=== PATIENT | female | born 1950 | race Caucasian/White ===

== ENCOUNTER 2018-12-27 14:37 | Observation (INO) ==
--- NOTE | 2018-12-27 15:00 | Emergency Department Note ---
ED Disposition Clinical Impression: Unstable angina, Hypertension Disposition: Still a Patient Condition on Discharge: Fair - Critical Care Critical Care Time: No Attestation: On , the high probability of a clinically significant, sudden or life threatening deterioration of the following system(s) required my full and direct attention, intervention and personal management. The time I documented below is in addition to time spent performing reported procedures but includes the following listed in this critical care notation. Medical Decision Making - Nolan Inquiry Pt receiving controlled substance: No Nolan was queried for this patient: No Vital Signs: 12/27/18 14:37 12/27/18 14:38 12/27/18 15:07 Temperature 97.6 F Temperature Source Oral Pulse Rate [Right Brachial] 70 66 62 Respiratory Rate 18 Blood Pressure [Right Arm] 100/56 L 100/59 L 106/79 L Blood Pressure Mean [Right Arm] 70 72 88 Blood Pressure Source [Right Arm] Automatic Cuff Blood Pressure Position [Right Arm] Sitting 02 Sat by Pulse Oximetry 96 96 93 L Oxygen Delivery Method Room Air 12/27/18 15:56 Temperature Temperature Source Pulse Rate [Right Brachial] 61 Respiratory Rate Blood Pressure [Right Arm] 125/62 Blood Pressure Mean [Right Arm] 83 Blood Pressure Source [Right Arm] Blood Pressure Position [Right Arm] 02 Sat by Pulse Oximetry 94 L Oxygen Delivery Method - Lab Data Lab Results 12/27/18 14:45: WBC 6.9, RBC 4.80, Hgb 14.1, Hct 43.4, MCV 90.4, MCH 29.3, MCHC 32.4, RDW 13.1, Plt Count 268, MPV 7.7, Neut % (Auto) 64.8, Lymph % (Auto) 24.3, [place] % (Auto) 8.0, Eos % (Auto) 2.3, Baso % (Auto) 0.6, Neut # (Auto) 4.5, Lymph # (Auto) 1.7, [place] # (Auto) 0.6, Eos # (Auto) 0.2, Baso # (Auto) 0.0 12/27/18 14:45: Sodium 140, Potassium 3.9, Chloride 103, Carbon Dioxide 25, Anion Gap 15.9 H, BUN 16, Creatinine 0.74, Estimated Creat Clear 51, Estimated GFR 78, Est GFR ( Amer) 94, Glucose 123 H, Calcium 8.9, Troponin I < 0.02 Result diagrams: 12/27/18 14:45 12/27/18 14:45 - ECG Data Tracing #1 Normal sinus rhythm 67/min baseline artifact LVH changes no acute ST segment or T wave changes. ECG initial impression date: 12/27/18 ECG initial impression time: 14:40 Medical Decision Narrative: Mrs. Coombs reported lessning of her cp to three in the ED. her first set of troponin was negative. I reviewed her prior work-up at [facility] and the last was an echo in 2013. [id number] called the pipe supervisor Dr. Blood who recommended the patient to be admitted for rule out LA protocol and to be contacted if the troponin is positive for an emergency cardiac catheterization. [address] Valerio was covering Dr. Disla who agreed to admit the patie nt and follow the above plan. Chest Pain HPI - General Chief Complaint: Chest Pain Stated Complaint: chest pain Time Seen by Provider: 12/27/18 14:40 Mode of Arrival: EMS Source of Information: Patient, EMS Limitations: No Limitations Description of Symptoms (Recalled from ER Triage Doc. by RN): pt presents with having hard chest pain prior to arrival; stated she was given 2 nitroglycerin and it resolved. em[facility] arrived [place] [facility] and initiated an iv, obtained blood for labs and assessed pt. no acute cardiac event noted per ems. - History of Present Illness HPI narrative: 68 years old white female non-smoker with history of chest pain but she denies ever having cardiac catheterization. 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 Tooday at 11 AM she developed retrosternal chest pressure that is rated 5/10 with no radiation associated with dizziness, weakness and shortness of breath. She denies palpitations. She denies nausea vomiting hematemesis coffee-ground emesis hemoptysis melanotic stool or bleeding per rectum. The patient received baby aspirin x4 and nitroglycerin with relief of her chest pain but returned after 5 minutes. Repeated blood pressure was dropped to 81/51 with no tachycardia so the patient was brought to the ED for evaluation. MD complaint: chest pain Onset (ago): hour(s) Time: 11:00 Duration: intermittent Activity at onset: during rest Pain location: substernal Severity: moderate Severity scale (1-10): 5 Quality: heaviness Pain radiation: none Relieving factors: nitroglycerin Exacerbating factors: nothing Associated symptoms: dyspnea Risk Factors for CAD: Hypertension Treatments prior to or on arrival for Cardiac Chest Pain: aspirin, nitroglycerin, oxygen - Related Data Prior Cardiac Testing/Procedures: Echocardiogram On Oral Contraceptives: No Home Medications Medication Instructions Recorded Confirmed Saccharomyces boulardii 250 mg 250 mg PO BID 04/09/18 05/08/18 capsule atenolol 25 mg tablet 25 mg PO DAILY 04/09/18 05/08/18 bisacodyl 10 mg rectal suppository 10 mg [place] DAILY PRN 04/09/18 05/08/18 ferrous sulfate 325 mg (65 mg 325 mg PO DAILY tab 04/09/18 05/08/18 iron) tablet gabapentin 300 mg capsule 300 mg PO DAILY 04/09/18 05/08/18 levothyroxine 50 mcg tablet 50 mcg PO DAILY 04/09/18 05/08/18 melatonin 5 mg capsule 5 mg PO DAILY cap 04/09/18 05/08/18 nitroglycerin 0.4 mg sublingual 0.4 mg SUBLINGUAL Q5-15M PRN 04/09/18 05/08/[address] 40 mg granules 40 mg PO DAILY 04/09/18 05/08/18 delayed-release for susp in packet polyethylene glycol 3350 17 gram 17 g PO DAILY 04/09/18 05/08/18 oral powder packet Allergies Allergy/AdvReac Type Severity Reaction Status Date / Time ASA (ASPIRIN) AdvReac Unknown NA-NAUSEA Uncoded 07/02/17 15:[address] [facility] History - Hepatitis A Screen Drug use history?: No High risk sexual behaviors?: No History of sexually transmitted infection?: No Currently employed?: No Childcare worker?: No Do you have indoor plumbing?: Yes Do you have electricity?: Yes Attestation statement:: This patient has been screened for Hepatitis A risk factors. I have reviewed the patient's past medical history: Yes Medical History: Reports:: Gastroesophageal Reflux Disease(GERD), Hypertension Denies:: Diabetes Mellitus Type 1, Diabetes Mellitus Type 2, Internal Pacemaker, Lung Disease, Seizures Other Medical History: Reports: Thyroid Disease Other Surgeries: Yes: No Previous Surgery. No: Pacemaker - Social History Smoking Status: Never smoker Alcohol Intake: never Substance Use Type: denies use Family Hx:: No significant family history ROS Obtained: Yes All systems reviewed & no additional complaints Physical Exam - General General appearance: alert, in no apparent distress - Head Head exam: atraumatic, normocephalic, normal inspection - Eye Eye exam: Present: normal appearance, PERRL, EOMI. Absent: scleral icterus, nystagmus - ENT ENT exam: Present: normal exam, normal oropharynx, mucous membranes moist, TM's normal bilaterally, normal external ear exam - Neck Neck exam: Present: normal inspection, full ROM, trachea midline. Absent: meningismus, lymphadenopathy - Chest Chest inspection: Present: normal inspection, symmetric chest wall rise. Absent: tenderness - Respiratory Respiratory exam: Present: normal lung sounds bilaterally. Absent: respiratory distress, wheezes, stridor - Cardiovascular Cardiovascular exam: Present: regular rate, normal rhythm, normal heart sounds. Absent: JVD - Abdominal Exam Abdominal exam: Present: soft, normal bowel sounds. Absent: distention, tenderness, guarding, rebound, rigidity - External exam: Present: normal external exam - Extremities Exam Extremities exam: Present: normal inspection, full ROM, normal capillary refill, other (Left above-knee amputation.). Absent: tenderness, pedal edema, joint swelling, calf tenderness - Back Exam Back exam: Present: normal inspection. Absent: tenderness, CVA tenderness (R), CVA tenderness (L) - Neurological Exam Neurological exam: Present: alert, oriented X3, CN II-XII intact, motor sensory deficit, reflexes normal - Psychiatric Psychiatric exam: Present: normal affect, normal mood - Skin Skin exam: Present: warm, dry, intact, normal color - Lymphatic Lymphatic Findings: no adenopathy
[2018-12-27 15:01] LABS: Basophils % 0.6 % (0.1-2.0); Eosinophils # 0.2 K/mm3 (0.0-0.4); Eosinophils % 2.3 % (0.1-12.0); Hematocrit 43.4 % (37.0-47.0); Hemoglobin 14.1 g/dL (12.2-16.2); Lymphocytes # 1.7 K/mm3 (0.7-4.5); Lymphocytes % 24.3 % (10-50); Mean Corpuscular HGB Conc 32.4 g/dL (31.8-35.4); Mean Corpuscular Volume 90.4 fl (81-99); Mean Platelet Volume 7.7 fl (7.4-10.4); Monocytes # 0.6 K/mm3 (0.1-1.0); Neutrophils # 4.5 K/mm3 (1.8-7.8); Neutrophils % 64.8 % (37.0-80.0); Platelet Count 268 K/mm3 (142-424); Red Cell Distribution Width 13.1 % (11.5-17.5); White Blood Count 6.9 K/mm3 (4.8-10.8)
[2018-12-27 15:12] LABS: Anion Gap 15.9 mEq/L (5-15); Blood Urea Nitrogen 16 mg/dL (7-18); Calcium 8.9 mg/dL (8.5-10.1); Carbon Dioxide 25 mmol/L (21.0-32.0); Chloride 103 mmol/L (98-107); Glucose 123 mg/dL (74-106); Sodium 140 mmol/L (136-145)
[2018-12-28 06:47] LABS: Basophils % 0.8 % (0.1-2.0); Eosinophils # 0.2 K/mm3 (0.0-0.4); Eosinophils % 3.2 % (0.1-12.0); Hemoglobin 13.9 g/dL (12.2-16.2); Lymphocytes # 1.6 K/mm3 (0.7-4.5); Lymphocytes % 27.3 % (10-50); Mean Corpuscular Volume 89.5 fl (81-99); Mean Platelet Volume 7.2 fl (7.4-10.4); Monocytes # 0.4 K/mm3 (0.1-1.0); Monocytes % 7.7 % (1.7-9.3); Neutrophils # 3.5 K/mm3 (1.8-7.8); Platelet Count 223 K/mm3 (142-424); Red Blood Count 4.58 M/mm3 (4.20-5.40); Red Cell Distribution Width 13.1 % (11.5-17.5); White Blood Count 5.7 K/mm3 (4.8-10.8)
[2018-12-28 07:04] LABS: Anion Gap 16.1 mEq/L (5-15); Calcium 8.7 mg/dL (8.5-10.1); Chol/HDL Ratio 4.6 (1-3.5)
--- NOTE | 2018-12-28 07:22 | H&P/Discharge Summary ---
General - General Admission date:: 12/27/18 Discharge date: 12/28/18 *Admission Date: 12/27/18 *Chief complaint: Chest pain *History of present illness: 68-year-old white female with no cardiac history, but who has a history of ongoing colon cancer and is scheduled for resection near the end of this month, who is a resident of a local senior care because of multiple comorbidities, and above-knee amputation because of knee replacement with failure to progress with physical therapy 2 years ago. Yesterday after at the senior care she began to complain of sharp chest pain, she reported some shortness of breath as well. Was given a couple nitroglycerin and EMS was called. They gave her aspirin and nitroglycerin and on the way to the hospital her pain resolved. In the ER troponins were negative but she was admitted overnight for rule out myocardial infarction. [facility] History I have reviewed the patient's past medical history: Yes Medical History: Reports:: Gastroesophageal Reflux Disease(GERD), Hypertension Denies:: Diabetes Mellitus Type 1, Diabetes Mellitus Type 2, Internal Pacemaker, Lung Disease, Seizures *Have you ever received a pneumonia vaccine?: No *Have you received a flu vaccine this season?: No Other Medical History: Reports: Thyroid Disease Other Surgeries: Yes: No Previous Surgery, Colonoscopy, Colon Resection. No: Pacemaker Amputation: Yes (left leg) - *Social History Educational Level: Attended High School Smoking Status: Never smoker Alcohol Intake: never Substance Use Type: denies use *Occupational Status:: disabled Housing: senior care *Travel in the last 8 weeks: None - Psychiatric History Expresses thoughts of harming self/others: None Suicide Plan Description: No Plan Family Hx:: No significant family history Review of Systems - Review of Systems Review of systems:: pertinent systems reviewed and negative unless documented below - Constitutional Denies anorexia, Denies body ache(s), Denies chills, Denies increased appetite - Eyes Denies blind spots, Denies blurry vision, Denies change in vision - ENT Reports poor balance, Denies abnormal hearing, Denies bleeding gums - *Cardiovascular Reports chest pain (But none since arrival in the emergency department), Denies excessive sweating, Denies shortness of breath, Denies generalized swelling, Denies irregular heart rhythm, Denies lightheadedness - *Respiratory Denies change in phlegm color, Denies chest congestion, Denies shortness of breath with activity, Denies excessive phlegm production - *Gastrointestinal Denies abdominal pain, Denies belching, Denies change in stools, Denies coffee ground vomit - *Musculoskeletal Reports abnormal walking - Integumentary/Breasts Denies acne, Denies hair loss, Denies bleeding lesions Exam Vital signs and Labs for Last 24 Hours: Temp Pulse Resp BP Pulse Ox 98.1 F 60 17 132/80 92 L 12/28/18 03:53 12/28/18 04:00 12/28/18 03:53 12/28/18 03:53 12/28/18 03:53 Laboratory Results - last 24 hr 12/27/18 14:45: WBC 6.9, RBC 4.80, Hgb 14.1, Hct 43.4, MCV 90.4, MCH 29.3, MCHC 32.4, RDW 13.1, Plt Count 268, MPV 7.7, Neut % (Auto) 64.8, Lymph % (Auto) 24.3, [place] % (Auto) 8.0, Eos % (Auto) 2.3, Baso % (Auto) 0.6, Neut # (Auto) 4.5, Lymph # (Auto) 1.7, [place] # (Auto) 0.6, Eos # (Auto) 0.2, Baso # (Auto) 0.0 12/27/18 14:45: Sodium 140, Potassium 3.9, Chloride 103, Carbon Dioxide 25, Anion Gap 15.9 H, BUN 16, Creatinine 0.74, Estimated Creat Clear 51, Estimated GFR 78, Est GFR ( Amer) 94, Glucose 123 H, Calcium 8.9, Troponin I < 0.02 12/27/18 19:18: Troponin I < 0.02 12/27/18 22:19: Troponin I < 0.02 12/28/18 06:16: WBC 5.7, RBC 4.58, Hgb 13.9, Hct 41.0, MCV 89.5, MCH 30.4, MCHC 34.0, RDW 13.1, Plt Count 223, MPV 7.2 L, Neut % (Auto) 61.0, Lymph % (Auto) 27.3, [place] % (Auto) 7.7, Eos % (Auto) 3.2, Baso % (Auto) 0.8, Neut # (Auto) 3.5, Lymph # (Auto) 1.6, [place] # (Auto) 0.4, Eos # (Auto) 0.2, Baso # (Auto) 0.0 12/28/18 06:16: Sodium 142, Potassium 4.1, Chloride 106, Carbon Dioxide 24, Anion Gap 16.1 H, BUN 13, Creatinine 0.76, Estimated Creat Clear 49, Estimated GFR 75, Est GFR ( Amer) 91, Glucose 107 H, Calcium 8.7, Magnesium 2.1, Triglycerides 168, Cholesterol 161, LDL Cholesterol 92, VLDL Cholesterol 34, HDL Cholesterol 35, Cholesterol/HDL Ratio 4.6 H I & O for Last 24 hours: Intake & Output 12/25/18 12/26/18 12/27/18 12/28/18 11:59 11:59 11:59 11:59 Intake Total 480 / 480 Balance 480 / 480 Weight 131 lb 5 oz Narrative: Patient is awake, alert, pleasant. ENT exam clear. Oropharynx clear. Lungs have good air movement bilaterally. Heart rate regular without murmurs. Abdomen soft. Previous AKA noted. Otherwise no edema in remaining leg or arms. Good distal pulses. Hospital Course Hospital Course: Patient was admitted overnight. Ruled out for MO, no change on telemetry monitoring. Troponins were undetectable x3. Patient will be transferred back to senior care today. She will need to be scheduled for Cardiolite Lexiscan stress test at [facility] this week. Please note she will have as needed nitroglycerin available. Please administer nitroglycerin tablets every 5 minutes x 3 if chest pain occurs. Patient is a non-smoker, has excellent control blood pressure and no family history of heart disease. Is certainly low risk for unstable angina or disease, but given her pain pattern and impending surgery does need stress testing this next week. Results Labs on day of discharge: Labs from last 24 hours 12/28/18 12/28/18 12/27/18 06:16 06:16 22:19 WBC 5.7 RBC 4.58 Hgb 13.9 Hct 41.0 MCV 89.5 MCH 30.4 MCHC 34.0 RDW 13.1 Plt Count 223 MPV 7.2 L Neut % (Auto) 61.0 Lymph % (Auto) 27.3 [place] % (Auto) 7.7 Eos % (Auto) 3.2 Baso % (Auto) 0.8 Neut # (Auto) 3.5 Lymph # (Auto) 1.6 [place] # (Auto) 0.4 Eos # (Auto) 0.2 Baso # (Auto) 0.0 Sodium 142 Potassium 4.1 Chloride 106 Carbon Dioxide 24 Anion Gap 16.1 H BUN 13 Creatinine 0.76 Estimated Creat Clear 49 Estimated GFR 75 Est GFR ( Amer) 91 Glucose 107 H Calcium 8.7 Magnesium 2.1 Troponin I < 0.02 Triglycerides 168 Cholesterol 161 LDL Cholesterol 92 VLDL Cholesterol 34 HDL Cholesterol 35 Cholesterol/HDL Ratio 4.6 H 12/27/18 12/27/18 12/27/18 19:18 14:45 14:45 WBC 6.9 RBC 4.80 Hgb 14.1 Hct 43.4 MCV 90.4 MCH 29.3 MCHC 32.4 RDW 13.1 Plt Count 268 MPV 7.7 Neut % (Auto) 64.8 Lymph % (Auto) 24.3 [place] % (Auto) 8.0 Eos % (Auto) 2.3 Baso % (Auto) 0.6 Neut # (Auto) 4.5 Lymph # (Auto) 1.7 [place] # (Auto) 0.6 Eos # (Auto) 0.2 Baso # (Auto) 0.0 Sodium 140 Potassium 3.9 Chloride 103 Carbon Dioxide 25 Anion Gap 15.9 H BUN 16 Creatinine 0.74 Estimated Creat Clear 51 Estimated GFR 78 Est GFR ( Amer) 94 Glucose 123 H Calcium 8.9 Magnesium Troponin I < 0.02 < 0.02 Triglycerides Cholesterol LDL Cholesterol VLDL Cholesterol HDL Cholesterol Cholesterol/HDL Ratio DS: Diagnosis - Discharge Diagnosis (1) Chest pain Status: Resolved (2) Hypertension Status: Chronic Discharge Plan - Patient Discharge Instructions ACTIVITY: Continue current activity DIET: continue same diet Patient Instructions: High Blood Pressure, DI for Angina, DI for Hypothyroidism - Follow up Plan Follow up with: Melisa Yanez APRN [Nurse Practitioner] - Disposition: Xfer [facility] Home Medications: Home Medications Medication Instructions Recorded Confirmed Type Saccharomyces boulardii 250 mg 250 mg PO BID 04/09/18 12/27/18 History capsule atenolol 25 mg tablet 25 mg PO DAILY 04/09/18 12/27/18 History bisacodyl 10 mg rectal suppository 10 mg [place] DAILY PRN 04/09/18 12/27/18 History ferrous sulfate 325 mg (65 mg 325 mg PO DAILY tab 04/09/18 12/27/18 History iron) tablet gabapentin 300 mg capsule 300 mg PO DAILY 04/09/18 12/27/18 History levothyroxine 50 mcg tablet 50 mcg PO DAILY 04/09/18 12/27/18 History melatonin 5 mg capsule 5 mg PO DAILY cap 04/09/18 12/27/18 History nitroglycerin 0.4 mg sublingual 0.4 mg SUBLINGUAL Q5-15M PRN 04/09/18 12/27/[address] 40 mg granules 40 mg PO DAILY 04/09/18 12/27/18 History delayed-release for susp in packet polyethylene glycol 3350 17 gram 17 g PO DAILY 04/09/18 12/27/18 History oral powder packet Nitroglycerin 0.4 mg SL Q5MINP PRN #25 tab.subl 12/28/18 Rx Prescriptions/Medication Reconciliation: New Nitroglycerin 0.4 mg SL Q5MINP PRN #25 tab.subl PRN Reason: chest pain Continued levothyroxine 50 mcg tablet 50 mcg PO DAILY atenolol 25 mg tablet 25 mg PO DAILY Saccharomyces boulardii 250 mg capsule 250 mg PO BID polyethylene glycol 3350 17 gram oral powder packet 17 g PO DAILY gabapentin 300 mg capsule 300 mg PO DAILY pantoprazole DR 40 mg granules delayed-release for susp in packet 40 mg PO DAILY ferrous sulfate 325 mg (65 mg iron) tablet 325 mg PO DAILY tab nitroglycerin 0.4 mg sublingual tablet 0.4 mg SUBLINGUAL Q5-15M PRN PRN Reason: Chest Pain bisacodyl 10 mg rectal suppository 10 mg [place] DAILY PRN PRN Reason: Constipation melatonin 5 mg capsule 5 mg PO DAILY cap Other Amb Orders: NM malick perf SPECT rest & str Time Frame: 2 Days, Location: Radiology
== END 2018-12-28 10:50 ==
LOC: ER 14:37 → 2ND 14:37
PROVIDERS: ADMIT Emergency Medicine; ATTEND Internal Medicine Adolescent Medicine
DX: C18.9 Malignant neoplasm of colon, unspecified; Z89.612 Acquired absence of left leg above knee; Z79.899 Other long term (current) drug therapy; I10 Essential (primary) hypertension; I20.0 Unstable angina
CPT/HCPCS: 36415; 71010; 71045; 80048; 80061; 83735; 84484; 85025; 93005; 99284; G0378

== ENCOUNTER → 2019-01-02 07:27 | Outpatient (CLI) | payer MEDICARE, MEDICAID, SELFPAY ==
--- NOTE | 2019-01-02 07:47 | NM_ITS ---
CARDIOLITE SPECT MYOCARDIAL PERFUSION LEXISCAN, REST AND STRESS: History: Chest pain, family history Procedure: Patient received 0.4 mg of intravenous Lexiscan, resting heart rate was 68 bpm resting blood pressure 131/72, with Lexiscan maximum heart rate achieved was 86 bpm which is less than 85% of the maximum] heart rate and a blood pressure was 109/60. With Lexiscan patient complained of nausea and dry heaves Electrocardiogram: Resting electrocardiogram showed sinus rhythm, with Lexiscan there is less than 1.[address] segment depression noted from the baseline EKG. The EKG portion of the Lexiscan Myoview is nondiagnostic. Cardiac stress and resting SPECT images: Cardiac stress and resting SPECT images were obtained using technetium 99 Myoview 30.4 mCi stress and 9.7 mCi at rest. Gated SPECT further analysis of segmental wall motion and calculation of the ejection fraction also done. Cardiac stress and the suspect images show uniform myocardial activity without segmental perfusion abnormality, computer derived ejection fraction is over 65% with no regional wall motion abnormality, right ventricle is normal size and contractility. Conclusion: 1. The EKG portion of the Lexiscan Myoview is nondiagnostic. 2. No scintigraphic evidence of reversible ischemia seen, computer derived ejection fraction is over 65% with no regional wall motion abnormality, right ventricle is normal size and contractility. 3. Normal Lexiscan Myoview study.
--- NOTE | 2019-01-02 08:04 | HMH.ITSHM ---
Current Home Medications as stated by this patient Carlyn Law or patient accounting representative. []ATENOLOL FLORASTOR LEVOTHYROXINE PROTONIX CETIRIZINE FERROUS SULF FLUTICASONE ADVAIR NEURONTIN MELATONIN FLUOXETINE MIRALAX NITRO OXYCODONE BENZONATATE
== END ==
PROVIDERS: PCP Internal Medicine Adolescent Medicine; Visit Provider Internal Medicine Adolescent Medicine
DX: R07.9 Chest pain, unspecified (principal)
CPT/HCPCS: 78452; 93017; A9502; J2785

== ENCOUNTER → 2019-04-06 14:03 | Outpatient (CLI) | payer MEDICARE, MEDICAID, SELFPAY ==
--- NOTE | 2019-04-06 14:09 | CT_ITS ---
PROCEDURE: CT HIP LT WO CON CLINICAL HISTORY: S/P FALL, PAIN Posttraumatic pain COMPARISON: No exams were available for comparison TECHNIQUE: Axial images obtained with sagittal and coronal reformats. All CT scans at the facility use one or more dose reduction, viz: automated exposure control, ma/kV adjustment per patient size (including targeted exams where dose is matched to indication, i.e. head), or iterative reconstruction technique. FINDINGS: There is a total left hip prosthesis present causing considerable artifact. There are no previous exams available for comparison. There is diffuse osteopenia. There is a comminuted fracture without significant displacement involving the medial aspect of the left ilium just inferior to the level of the SI joint. This fracture does not extend to the acetabular cup that exits superior and lateral superior to the superior acetabular cup screw. Fracture has more of a transverse component. In addition, there is a nondisplaced fracture involving the inferior pubic ramus on the left. IMPRESSION: 1. Comminuted fracture involves the left ilium at the level of the inferior aspect of the SI joint traversing laterally. 2. Nondisplaced fracture left inferior pubic ramus. 3. Status post total left hip replacement with no evidence of fracture or dislocation of the prosthesis Dictated by: Michael Schwartz MD 04/07/2019 06:40 Electronically signed by Michael Schwartz MD in [place] 04/07/2019 06:40
== END ==
PROVIDERS: PCP Internal Medicine Adolescent Medicine; Visit Provider Internal Medicine Adolescent Medicine
DX: M25.552 Pain in left hip (principal)
CPT/HCPCS: 73700

== ENCOUNTER → 2020-02-12 13:41 | Outpatient (CLI) | payer MEDICARE, MEDICAID, SELFPAY ==
--- NOTE | 2020-02-12 13:48 | CA_ITS ---
APPROVED REPORT EXAM: Comprehensive 2D, Doppler, and color-flow Echocardiogram Tallow Maker: Martha Green RT(R) Ht: 5 ft 7 in Wt: 143lbs BSA: 1.75 BP: 120/80 mmHg Indications: shortness of breath 2D Dimensions LVOT 1.76 cm (M/F) 1.5-2.5 M-Mode Dimensions RVDd 1.65 cm (0.9-2.6) LVDd 4.05 cm (3.5-5.7) LVDs 2.85 cm (3.5-5.7) IVSd 0.64 cm (0.6-1.1) PWd 0.76 cm (0.6-1.1) EF (Teich) 57.10% FS 29.60% EDV (Teich) 72.10 mL ESV (Teich) 30.90 mL LV Diastology E/A Ratio 0.76 Mitral Valve MV A Velocity 94.00 (40-130 cm/s) Left Ventricle Left atrium is mildly enlarged, left ventricle is normal size, mild concentric left ventricular hypertrophy, visually estimated ejection fraction of 55% with no regional wall motion abnormality, grade 1 diastolic dysfunction seen without tissue Doppler evidence of raise left atrial pressure. Right Ventricle Right atrium and right ventricular normal size and contractility. Aortic Valve Aortic valve is minimally thickened and fibrosed, there is no aortic stenosis or aortic insufficiency. Mitral Valve Mitral valve leaflets are minimally thickened, there is mild mitral regurgitation. Tricuspid Valve Tricuspid valve is grossly normal, there is mild tricuspid regurgitation, tricuspid regurgitation jet velocity is inadequate for calculation of the right ventricular systolic pressure. Pulmonic Valve Pulmonic valve is poorly visualized. Great Vessels Aortic root is normal size. Pericardium No significant pericardial effusion noted. Conclusion 1. Mildly enlarged left atrium, normal left ventricular size, mild concentric left ventricular hypertrophy, visually estimated ejection fraction 55% with no regional wall motion abnormality, grade 1 diastolic dysfunction seen without tissue Doppler evidence of raise left atrial pressure. 2. Thickened and calcified aortic valve without aortic stenosis or aortic insufficiency. 3. Mild mitral and tricuspid regurgitation. 4. No significant pericardial effusion noted. Electronically signed by : Lance Baker, 02/15/2020 17:39:02
--- NOTE | 2020-02-12 13:53 | CT_ITS ---
PROCEDURE: CT CHEST W CON CLINCAL INDICATION: ABN EKG,SOA Shortness of breath. COMPARISON: No exams were available for comparison TECHNIQUE: IV Contrast: 75ml Optiray 350 Axial images obtained with sagittal and coronal reformats. All CT scans at the facility use one or more dose reduction, viz: automated exposure control, ma/kV adjustment per patient size (including targeted exams where dose is matched to indication, i.e. head), or iterative reconstruction technique. FINDINGS: IMAGE QUALITY IS SOMEWHAT HAMPERED BY RESPIRATORY MOTION ARTIFACT. HEART AND MEDIASTINAL STRUCTURES: The heart size is normal and there is no pericardial effusion. Atherosclerotic calcification of the aortic arch and descending aorta. The aorta and great vessels are normal in caliber. The central pulmonary arteries are patent with no evidence of embolus. There is no significant mediastinal, hilar or axillary lymphadenopathy demonstrated. The trachea and mainstem bronchi are patent. A moderately large size hiatal hernia is seen. LUNGS AND PLEURAL SPACES: There is possible COPD. Mildly increased pulmonary interstitial markings are seen in both lungs. There is scattered mild linear atelectasis. Lung gonzalez are unremarkable for acute infiltrative or congestive changes. A 6 millimeter calcified nodule/granuloma present laterally in the right upper lobe. There is posterior pleural thickening. No pleural effusion or pneumothorax. BONY STRUCTURES: Diffuse bony demineralization. UPPER ABDOMEN: Unremarkable. ADDITIONAL FINDINGS: There is an elevated right hemidiaphragm. There are T9 and T11 vertebral wedge compression deformities/fractures with loss of about 50 percent anterior body height is seen. Multilevel endplate irregularity/Schmorl's nodes with degenerative changes in the thoracic spine is seen. There is increased thoracic kyphosis. No acute bony abnormality is seen. IMPRESSION: 1.No acute abnormality noted in the chest. 2. A moderately large size hiatal hernia is seen. Multiple chronic changes in the chest are seenas described in the report. Dictated by: Samina Kolb 02/12/2020 14:56 Electronically signed by Samina Kolb in [facility] 02/12/2020 14:56
== END ==
PROVIDERS: PCP Internal Medicine Adolescent Medicine; Visit Provider Internal Medicine Adolescent Medicine
DX: R06.02 Shortness of breath (principal); R94.31 Abnormal electrocardiogram [ECG] [EKG]
CPT/HCPCS: 71260; 93306; Q9967

== ENCOUNTER → 2021-02-02 07:18 | Outpatient (CLI) | payer MEDICARE, MEDICAID, SELFPAY ==
[2021-02-02 13:54] LABS: Basophils # 0.1 K/mm3 (0-0.2); Basophils % 1.1 % (0.1-2.0); Eosinophils # 0.3 K/mm3 (0.0-0.4); Eosinophils % 3.6 % (0.1-12.0); Hematocrit 38.3 % (37.0-47.0); Hemoglobin 12.7 g/dL (12.2-16.2); Lymphocytes # 2.2 K/mm3 (0.7-4.5); Lymphocytes % 29.4 % (10-50); Mean Corpuscular HGB Conc 33.2 g/dL (31.8-35.4); Mean Corpuscular Hemoglobin 29.8 pg (27.0-31.2); Mean Corpuscular Volume 89.8 fl (81-99); Mean Platelet Volume 8.8 fl (7.4-10.4); Monocytes # 0.5 K/mm3 (0.1-1.0); Monocytes % 6.6 % (1.7-9.3); Neutrophils # 4.4 K/mm3 (1.8-7.8); Neutrophils % 59.4 % (37.0-80.0); Platelet Count 281 K/mm3 (142-424); Red Blood Count 4.27 M/mm3 (4.20-5.40); Red Cell Distribution Width 13.5 % (11.5-17.5); White Blood Count 7.4 K/mm3 (4.8-10.8)
[2021-02-02 14:05] LABS: Chloride 108 mmol/L (98-107); Potassium 3.8 mmoL/L (3.5-5.1); Sodium 143 mmol/L (136-145)
[2021-02-02 14:07] LABS: Alanine Aminotransferase 19 U/L (12-78); Aspartate Amino Transferase 26 U/L (14-36); Blood Urea Nitrogen 8 mg/dl (7-17); Estimated Glomerular Filt Rate 98 ml/min (>60); GFR (African American) 119 ML/MIN (>60)
[2021-02-02 14:08] LABS: Albumin Level 3.4 g/dl (3.5-5.0); Albumin/Globulin Ratio 1.3 (1.1-1.8); Alkaline Phosphatase 98 U/L (38-126); Anion Gap 10.8 mEq/L (5-15); Bilirubin,Total 0.3 mg/dl (0.2-1.3); Calcium 8.8 mg/dl (8.4-10.2); Carbon Dioxide 28 mmol/L (22.0-30.0); Chol/HDL Ratio 2.5 (1-3.5); Cholesterol 79 mg/dl (140-200); Globulin 2.7 g/dL (1.3-3.2); Glucose 111 mg/dl (74-100); HDL Cholesterol 32 mg/dl (40-60); Total Protein,Serum 6.1 g/dl (6.3-8.2); Triglycerides 132 mg/dl (30-150); VLDL Cholesterol 26 mg/dL (0-40)
[2021-02-02 14:21] LABS: Direct LDL Cholesterol < 30.00 mg/dL (100-129)
[2021-02-02 14:40] LABS: Thyroid Stimulating Hormone 0.44 uIU/mL (0.465-4.68)
[2021-02-02 14:50] LABS: Hemoglobin A1C 6.6 % (4.0-6.0)
== END ==
PROVIDERS: Visit Provider Nurse Practitioner Family
DX: R06.02 Shortness of breath (principal); D50.9 Iron deficiency anemia, unspecified; I10 Essential (primary) hypertension; E03.9 Hypothyroidism, unspecified; Z79.899 Other long term (current) drug therapy
CPT/HCPCS: 36415; 80053; 80061; 83036; 84443; 85025

== ENCOUNTER → 2021-03-16 08:23 | Outpatient (CLI) | payer MEDICARE, MEDICAID, SELFPAY ==
--- NOTE | 2021-03-16 08:27 | CT_ITS ---
PROCEDURE: CT ABDOMEN PELVIS W CON CLINICAL INDICATION: MALIGNANT NEOPLASM OF COLON COMPARISON: CT CT CHEST W CON from 02/12/2020 TECHNIQUE: IV Contrast: 75ML Isovue 370 Oral Contrast 450ml Redicat Axial images obtained with sagittal and coronal reformats. All CT scans at the facility use one or more dose reduction, viz: automated exposure control, ma/kV adjustment per patient size (including targeted exams where dose is matched to indication, i.e. head), or iterative reconstruction technique. FINDINGS: LOWER THORAX: No acute finding ABDOMEN & PELVIS: Medium-sized hernia. Fatty liver. There is a linear area of decreased attenuation in the right hepatic lobe which may be due to an of scarring not typical appearance for metastatic process. Follow-up is suggested. The spleen has an unremarkable appearance. There is minimal nodularity of the left adrenal gland nonspecific. Pancreas and kidneys have an unremarkable appearance. Duodenal diverticulum is suspected. Unremarkable appendix. The no radiopaque gallstones. No intestinal obstruction or free air. There is a large mass involving the sigmoid colon measuring at least 12 cm length and 4 cm in with. There is stranding of the pericolic fat along the superior aspect of this mass suspicious for extra colonic spread. No adenopathy is evident. There does appear to be a suture line along the proximal aspect of this lesion. At this region of the suture line there is an air-fluid level in the colon. A suture line is also small suspected along the distal aspect of this lesion. The rectum has an unremarkable appearance. No enlarged lymph nodes identified. Artifact is present from left hip prosthesis. Wedge compression changes involve the L1 vertebral body with loss of height anteriorly of approximately 40-50 percent. There is also wedge compression of T11 with loss of height of 50 percent anteriorly. These findings are not significantly changed from prior chest CT of 02/12/2020. A well-circumscribed 10 mm lucency is present in the right femoral head possibly due to a subchondral cyst IMPRESSION: Large sigmoid mass as described above with stranding of the pericolic fat consistent with neoplasm of the colon with extra colic spread into the adventitia. No convincing evidence distal metastasis within the abdomen Dictated by: Michael Schwartz MD 03/20/2021 10:30 Michael Schwartz MD in [facility] 03/20/2021 10:30
== END ==
PROVIDERS: PCP Internal Medicine Adolescent Medicine; Visit Provider Surgery
DX: C18.9 Malignant neoplasm of colon, unspecified (principal)
CPT/HCPCS: 74177; Q9967

== ENCOUNTER → 2021-03-28 07:57 | Outpatient (CLI) | payer MEDICARE, MEDICAID, SELFPAY ==
[2021-03-28 10:14] LABS: Basophils # 0.1 K/mm3 (0-0.2); Basophils % 0.6 % (0.1-2.0); Eosinophils # 0.2 K/mm3 (0.0-0.4); Eosinophils % 2.4 % (0.1-12.0); Hematocrit 40.2 % (37.0-47.0); Hemoglobin 12.3 g/dL (12.2-16.2); Lymphocytes # 1.9 K/mm3 (0.7-4.5); Lymphocytes % 23.7 % (10-50); Mean Corpuscular HGB Conc 30.7 g/dL (31.8-35.4); Mean Corpuscular Hemoglobin 29.2 pg (27.0-31.2); Mean Corpuscular Volume 94.8 fl (81-99); Mean Platelet Volume 8.3 fl (7.4-10.4); Monocytes # 0.6 K/mm3 (0.1-1.0); Monocytes % 6.9 % (1.7-9.3); Neutrophils # 5.4 K/mm3 (1.8-7.8); Neutrophils % 66.3 % (37.0-80.0); Platelet Count 345 K/mm3 (142-424); Red Blood Count 4.24 M/mm3 (4.20-5.40); Red Cell Distribution Width 13.3 % (11.5-17.5); White Blood Count 8.2 K/mm3 (4.8-10.8)
[2021-03-28 11:30] LABS: Hemoglobin A1C 6.8 % (4.0-6.0)
[2021-03-28 12:30] LABS: Chloride 105 mmol/L (98-107); Potassium 4.5 mmoL/L (3.5-5.1); Sodium 142 mmol/L (136-145)
[2021-03-28 12:32] LABS: Blood Urea Nitrogen 8 mg/dl (7-17); Estimated Glomerular Filt Rate 82 ml/min (>60); GFR (African American) 99 ML/MIN (>60)
[2021-03-28 12:33] LABS: Alanine Aminotransferase 15 U/L (12-78); Albumin Level 3.3 g/dl (3.5-5.0); Albumin/Globulin Ratio 1.2 (1.1-1.8); Alkaline Phosphatase 94 U/L (38-126); Anion Gap 15.5 mEq/L (5-15); Aspartate Amino Transferase 23 U/L (14-36); Bilirubin,Total 0.3 mg/dl (0.2-1.3); Calcium 8.9 mg/dl (8.4-10.2); Carbon Dioxide 26 mmol/L (22.0-30.0); Chol/HDL Ratio 2.5 (1-3.5); Cholesterol 77 mg/dl (140-200); Globulin 2.7 g/dL (1.3-3.2); Glucose 117 mg/dl (74-100); HDL Cholesterol 31 mg/dl (40-60); Triglycerides 142 mg/dl (30-150); VLDL Cholesterol 28 mg/dL (0-40)
[2021-03-28 12:45] LABS: Direct LDL Cholesterol < 30.00 mg/dL (100-129)
== END ==
PROVIDERS: Visit Provider Nurse Practitioner Family
DX: I10 Essential (primary) hypertension (principal); Z79.899 Other long term (current) drug therapy
CPT/HCPCS: 36415; 80053; 80061; 83036; 85025

== ENCOUNTER → 2021-06-20 09:52 | Outpatient (CLI) | payer MEDICARE, MEDICAID, SELFPAY ==
--- NOTE | 2021-06-20 10:17 | CT_ITS ---
PROCEDURE: CT ABDOMEN PELVIS W CON CLINICAL INDICATION: MALIGNANT NEOPLASM OF COLON COMPARISON: No exams were available for comparison TECHNIQUE: IV Contrast: 75ML Isovue 370 Oral Contrast None Axial images obtained with sagittal and coronal reformats. All CT scans at the facility use one or more dose reduction, viz: automated exposure control, ma/kV adjustment per patient size (including targeted exams where dose is matched to indication, i.e. head), or iterative reconstruction technique. FINDINGS: LOWER THORAX: There is a medium-sized hiatal hernia. ABDOMEN & PELVIS: The liver, spleen, adrenal glands, and pancreas have an unremarkable appearance. No renal or ureteral calculi. No hydronephrosis or renal mass. No intestinal obstruction or free air. There is a right lower quadrant ileostomy. There has been an interval colectomy with a Gladys's pouch. Artifact is present from left hip prosthesis. There is mild thickening of the presacral fat which is nonspecific and could be postsurgical. There is also mild stranding of the fat along the left presacral region along the internal iliac vessels which could also be postsurgical. Postsurgical changes noted of the anterior abdominal wall. There is a small amount of soft tissue gas in the subcutaneous fat in the left lower quadrant and could be due to recent injection. There is mild thickening of the urinary bladder nonspecific. There is also thickening of the descending and 3rd portion of the duodenum which is nonspecific. Possibly due to nondistention No acute bony findings. There is chronic wedge compression changes of T12 and T10. Cystic areas present in the right femoral head unchanged well-circumscribed benign-appearing. IMPRESSION: 1. Interval colectomy with Gladys's pouch with removal of the sigmoid mass. There is some mild presacral thickening centrally and on the left which could be due to postsurgical change. Follow-up suggested for confirmation. 2. No evidence of distal metastasis within the abdomen. Dictated by: Michael Schwartz MD 06/21/2021 11:12 Michael Schwartz MD in [facility] 06/21/2021 11:12
== END ==
PROVIDERS: PCP Internal Medicine Adolescent Medicine; Visit Provider Surgery
DX: C18.9 Malignant neoplasm of colon, unspecified (principal)
CPT/HCPCS: 74177; Q9967

== ENCOUNTER → 2021-08-15 07:52 | Outpatient (CLI) | payer MEDICARE, MEDICAID, SELFPAY ==
[2021-08-15 14:01] LABS: Basophils # 0.1 K/mm3 (0-0.2); Basophils % 0.7 % (0.1-2.0); Eosinophils # 0.3 K/mm3 (0.0-0.4); Eosinophils % 3.6 % (0.1-12.0); Hematocrit 38.8 % (37.0-47.0); Hemoglobin 12.3 g/dL (12.2-16.2); Lymphocytes % 28.8 % (10-50); Mean Corpuscular HGB Conc 31.8 g/dL (31.8-35.4); Mean Corpuscular Hemoglobin 29.2 pg (27.0-31.2); Mean Platelet Volume 10.4 fl (7.4-10.4); Monocytes # 0.5 K/mm3 (0.1-1.0); Monocytes % 6.8 % (1.7-9.3); Neutrophils # 4.2 K/mm3 (1.8-7.8); Neutrophils % 60.1 % (37.0-80.0); Platelet Count 456 K/mm3 (142-424); Red Blood Count 4.22 M/mm3 (4.20-5.40); Red Cell Distribution Width 14.7 % (11.5-17.5)
[2021-08-15 14:02] LABS: Chloride 107 mmol/L (98-107); Potassium 3.8 mmoL/L (3.5-5.1); Sodium 132 mmol/L (136-145)
[2021-08-15 14:05] LABS: Alanine Aminotransferase 40 U/L (12-78); Albumin Level 3.5 g/dl (3.5-5.0); Albumin/Globulin Ratio 1.3 (1.1-1.8); Alkaline Phosphatase 86 U/L (38-126); Anion Gap 9.8 mEq/L (5-15); Aspartate Amino Transferase 39 U/L (14-36); Bilirubin,Total 0.4 mg/dl (0.2-1.3); Blood Urea Nitrogen 10 mg/dl (7-17); Calcium 9.2 mg/dl (8.4-10.2); Carbon Dioxide 19 mmol/L (22.0-30.0); Estimated Glomerular Filt Rate 82 ml/min (>60); GFR (African American) 99 ML/MIN (>60); Globulin 2.6 g/dL (1.3-3.2); Glucose 121 mg/dl (74-100); Total Protein,Serum 6.1 g/dl (6.3-8.2)
[2021-08-15 17:40] LABS: Hemoglobin A1C 7.3 % (4.0-6.0)
[2021-08-16 12:21] LABS: CEA 2.5 ng/mL (0.0-4.7)
== END ==
PROVIDERS: Visit Provider Internal Medicine Adolescent Medicine
DX: C18.9 Malignant neoplasm of colon, unspecified; I10 Essential (primary) hypertension; Z79.899 Other long term (current) drug therapy
CPT/HCPCS: 36415; 80053; 82378; 83036; 84443; 85025

== ENCOUNTER → 2021-08-28 09:19 | Outpatient (CLI) | payer MEDICARE, MEDICAID, SELFPAY ==
--- NOTE | 2021-08-28 09:26 | CT_ITS ---
FINAL REPORT CLINICAL HISTORY: MALIGNANT NEOPLASM OF SIGMOID COLON// sigmoid colon neoplasm follow up // had colostomy placed 3 months ago // GFR=82// 75ml of isovue 370 given by IV // COMPARISON: June 20, 2021 FINDINGS: CT OF THE ABDOMEN AND PELVIS WITH CONTRAST Axial CT images of the abdomen and pelvis were obtained after the administration of intravenous contrast. Coronal reformatted images were also obtained and reviewed.This study was performed with techniques to keep radiation doses as low as reasonably achievable (ALARA). Individualized dose reduction techniques using automated exposure control or adjustment of mA and/or kV according to the patient's size were employed. Abdomen: There is mild atelectasis or scarring in the lung bases. A small hiatal hernia is present. The heart is normal in size. The liver has an unremarkable appearance, without evidence of mass or biliary ductal dilatation. There is a probable small stone in the gallbladder on image 38. The spleen is unremarkable. No adrenal mass is present. The pancreas has an unremarkable appearance. The kidneys are normal, without evidence of mass or hydronephrosis. The aorta is normal in caliber. There is no free fluid or adenopathy. No mass or abnormal fluid collection is seen. There are postoperative changes with a right pelvic colostomy. Pelvis: The appendix is not well-visualized. There are postoperative changes in the pelvis with a presumed Gladys's pouch. The urinary bladder is unremarkable. There is no new mass, adenopathy or fluid collection. There is no evidence of bowel obstruction. There is a left hip arthroplasty. IMPRESSION: Probable small gallstone. If indicated, right upper quadrant ultrasound. No new mass, adenopathy, or fluid collection. Postoperative changes as described. Reviewed, Interpreted and Dictated by Eric Bravo III, MD Transcribed by Chetan Hurd Authenticated by Eric Bravo III, MD on 08/28/2021 11:13:29 AM [facility]
== END ==
PROVIDERS: PCP Internal Medicine Adolescent Medicine; Visit Provider Surgery
DX: C18.7 Malignant neoplasm of sigmoid colon (principal)
CPT/HCPCS: 74177; Q9967